=== PATIENT | male | born 1945 | race Caucasian/White ===

== ENCOUNTER 2023-08-17 09:40 | Observation (INO) ==
--- NOTE | 2023-08-08 08:52 | Communication Note ---
Date of Service: August 08, 2023 I was notified by surgeon's office that patient believed he was told by someone he may need a stress test or cardiac catheterization. I spoke with patient who states that he is unsure which office relayed this but stated that the individual told him they were not sure if he would need a stress test or cardiac catheterization. He states he regularly walks up one flight of stairs-denies chest discomfort or shortness of breath. He mentions he also does cardio work- outs at his gym. I spoke with Savanna at [facility] who states that there is no documentation in chart regarding patient needing additional work-up or that they spoke with patient. She states will have this put in documentation for our office to scan into chart. Patient made aware, he denied additional questions or concerns.
--- NOTE | 2023-08-15 14:28 | Anesthesiology Consultation ---
Date of Service August 15, 2023 Assessment & Plan (1) Encounter for pre-operative examination: - I was notified by surgeon's office that patient believed he was told by someone he may need a stress test or cardiac catheterization. I spoke with patient who states that he is unsure which office relayed this but stated that the individual told him they were not sure if he would need a stress test or cardiac catheterization. He states he regularly walks up one flight of stairs- denies chest discomfort or shortness of breath. He mentions he also does cardio work-outs at his gym. I spoke with Savanna at [facility] who states that there is no documentation in chart regarding patient needing additional work-up or that they spoke with patient. She states will have this put in documentation for our office to scan into chart. Patient made aware, he denied additional questions or concerns. Follow-up call with cardiology advised documentation on patient not needing cardiac catheterization is not completed as their office did not discuss anything with patient prior to surgery. Case discussed with Dr. Cooper who advised nothing additional is needed and patient can proceed with surgery. 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 Chart Review Chart Review: Acceptable Risk for Surgery and Patient NOT seen in Pre Admission Testing History Surgery Operation Date: 08/17/23 08:00 Proposed Procedures p TURP (Transurethral Resection of the Prostate) - Conor Shin, DO Height/Weight Height: 5 ft 8 in Weight: 73.482 kg Allergies Allergy/AdvReac Type Severity Reaction Status Date / Time ciprofloxacin [From Cipro] AdvReac Unknown Verified 08/04/23 09:08 Medications Home Medications Medication Instructions Recorded Confirmed Last Taken cephalexin 500 mg capsule 500 mg PO BID 10 days #10 caps 05/01/23 08/04/23 Unknown sulfamethoxazole 800 1 tab PO BID #6 tabs 05/01/23 08/04/23 Unknown mg-trimethoprim 160 mg tablet (Bactrim DS) doxycycline hyclate 100 mg capsule 100 mg PO BID 7 days #14 caps 05/04/23 08/04/23 Unknown aspirin 81 mg tablet,delayed 81 mg PO QAM 08/04/23 08/04/23 Unknown release atorvastatin 80 mg tablet 80 mg PO PM 08/04/23 08/04/23 Unknown cholecalciferol (vitamin D3) 50 50 mcg PO DAILY 08/04/23 08/04/23 Unknown mcg (2,000 unit) tablet (Vitamin D3) tamsulosin 0.4 mg capsule 0.4 mg PO BID 08/04/23 08/04/23 Unknown Past Medical History Medical History (Updated 08/15/23 @ 14:21 by Kay Pal PA-C) BPH (benign prostatic hyperplasia) History of COVID-2021 History of myocardial infarction 2016 > stent then CABG History of postoperative nausea and vomiting Hx of Lyme disease resolved Hx pulmonary embolism very remote hx per pt > unknown cause > thinner WI'ed Hyperlipidemia Prostate cancer just monitoring for now Past Surgical History Surgical History History of cataract surgery bilat History of cholecystectomy History of colonoscopy History of heart artery stent 2016 > 1 stent Hx of CABG x3 vessels in 2016 Hx of prostate biopsy Hx of vasectomy Social History Smoking Status: Never smoker Do You Dip or Chew Tobacco: No Hx Alcohol Use: Yes Alcohol type: beer alcohol intake frequency: a few times a month Hx Substance Use: No substance use type: does not use Testing Laboratory Results 08/14/23 WBC: 6.7 H/H: 14/43 PLATELETS: 208,000 SODIUM: 140 POTASSIUM: 4.4 CHLORIDE: 108 CO2: 28 BUN: 20 CREATININE: 0.8 GLUCOSE: 99 Electrocardiogram Date: 04/26/23 Sinus rhythm, rate 79 bpm Nonspecific T abnormality Rightward P/WRS axis and rotation-possible pulmonary disease Chest X-Ray Date: 08/08/23 Hyperexpanded lungs without evidence of acute cardiopulmonary disease. Echocardiogram Date: 02/28/20 EF 55% No LV regional wall motion abnormalities RVSP 30 mmHg No significant valvular pathology Other Testing Abdomen pelvis CT 05/06/23 No hydronephrosis or nephrolithiasis Small bilateral incidental parapelvic renal cysts Cholecystectomy Moderately enlarged prostate Posterior right hepatic lobe reveals a septated cyst 2.5 x 2.0 cm with benign morphology
[2023-08-17] MEDS: LR 15ML/HR IV SCH (10:05)
--- NOTE | 2023-08-17 10:28 | History & Physical Bridge Note ---
Date of Service August 17, 2023 History & Physical Bridge Note I have examined the patient, reviewed the History & Physical and in the interval since the performance of the History & Physical I have noted the following changes of clinical significance: no changes noted
[2023-08-17] MEDS ORDERED: ATROPINE SULFATE 0.1 MG/ML 10ML SYR IV PRN (11:04)
[2023-08-17] MEDS ORDERED: HYDROmorphone INJ 1 MG/ML SYRINGE IV PRN (11:04)
[2023-08-17] MEDS ORDERED: ePHEDrine sulfate 50 MG/ML AMP IV PRN (11:04)
[2023-08-17] MEDS ORDERED: ONDANSETRON INJ 2 MG/ML 2 ML VIAL IV PRN (11:04)
[2023-08-17] MEDS ORDERED: oxyCODONE/ACETAMINOPHEN 5mg/325mg TAB PO PRN (11:52)
[2023-08-17] MEDS ORDERED: MoRPHine SULFATE 2 MG/ML CARP IV PRN (11:52)
[2023-08-17] MEDS ORDERED: MIDAZOLAM HCL 1 MG/ML 2ML VIAL ONE (12:30)
[2023-08-17] MEDS ORDERED: fentaNYL citrate PF 100 MCG/2 ML VIAL ONE (12:30)
[2023-08-17] MEDS: DOXYCYCLINE HYCLATE 100 MG in DEXTROSE 5% MINI-B 100 ML IV STA (13:06)
[2023-08-17] MEDS: ceFAZolin 2000MG 2,000 MG/15 ML SYR IV SCH ×2 (13:12→20:46)
[2023-08-17] MEDS ORDERED: LIDOCAINE 2% 2 ML VIAL/AMP(20MG/ML) INFIL ONE (13:26)
[2023-08-17] MEDS ORDERED: PROPOFOL IV EMULSION 10 MG/ML 20 ML VIAL IV ONE (13:26)
[2023-08-17] MEDS ORDERED: DEXAMETHASONE SOD INJ 4 MG/ML VIAL ONE (13:37)
[2023-08-17] MEDS ORDERED: ONDANSETRON INJ 2 MG/ML 2 ML VIAL ONE (13:37)
--- NOTE | 2023-08-17 14:30 | Operative Report ---
[facility] Post Operative Report Pre & Post Diagnosis Operation Date: 08/17/23 11:25 Pre-Op Diagnosis: Prostate Cancer Post-Op Diagnosis: Prostate Cancer I identified the patient and participated in the time-out.: Yes Procedure Operation Date: 08/17/23 11:25 Actual Procedures p Transurethral Resection of the Prostate(Not Applicable) - Conor Shin DO Surgeon Conor Shin, II, DO Sales Team Member None Estimated Blood Loss 5 Findings Consistent with Post-Op Diagnosis Large Prostate with obstruction. Specimens Prostate adenoma. Drains [address] Anesthesia Type General Complications none Disposition Disposition: Recovery Room Indications Patient with obstruction due to prostate enlargement. Risks and benefits discussed at length. Description of Procedure Patient was consented and brought back to the operating room. Patient was placed under anesthesia in the supine position and moved to the dorsal lithotomy position. Patient was prepped and draped in the regular sterile fashion. A time out was completed. A 30degree Cystoscope was placed into the bladder and the entire bladder was examined. The UO's were identified as well as the bladder neck, trigone, dome, and the other important landmarks. The prostatic urethra and large lobes/adenoma was assessed and the veru and bladder neck identified and area/size was assessed. The resection scope was placed and the fine bipolar loop was selected. Starting at the 5 and 7 o'clock positions, a channel was created from bladder neck to the veru. At this point the resection was then taken along the lateral lobes. Starting in the anterior prostate, tissue was resected to the capsule fibers and resected back down to the channel. This was resected from the bladder neck to the Veru. Extensive resection was necessary in order to clear the excess prostate tissue especially the extremely large left lateral lobe. The Specimen was removed and sent for analysis. The resection bed and any bleeding areas were fulgurated/cauterized and the entire area inspected. All bleeding was controlled. The bladder was inspected a final time. The bladder was emptied and irrigated. All specimen and debris was removed. The scope was removed with the bladder partially full. A catheter was placed and balloon elevated. This was easily irrigated. The patient was cleaned, aroused from anesthesia, and transferred to the pacu in stable condition having tolerated the procedure well with no complications. I was present and participated in all aspects of the procedure. The patient will be monitored in the PACU until transferred. Will plan to monitor postop. Will maintain CBI overnight. Will have patient return to office in approximately a week for catheter removal. Will plan to follow-up in approximately a month with CRANE LADLE PERSON/PA for pathology I attest to the content of the Intraoperative Record and any orders documented therein. Any exceptions are noted below.
[2023-08-17 15:44] LABS: Basophils # (auto) 0.02 K/uL (0.00-0.20); Basophils % (auto) 0.3 %; Eosinophils # (auto) 0.11 K/uL (0.00-0.50); Eosinophils % (auto) 1.5 %; Hematocrit (blood only) 40.6 % (42.0-52.0); Hemoglobin 13.4 g/dl (14.0-18.0); Immature Granulocytes # (auto) 0.05 K/uL (0.01-0.20); Immature Granulocytes % (auto) 0.7 %; Lymphocytes # (auto) 0.89 K/uL (1.20-3.40); Lymphocytes % (auto) 12.2 %; Mean Corpuscular Hemoglobin 30.2 pg (25.0-34.0); Mean Corpuscular Volume 91.6 fL (80.0-100.0); Mean Platelet Volume 9.4 fL (9.4-12.4); Monocytes # (auto) 0.21 K/uL (0.11-0.59); Monocytes % (auto) 2.9 %; Neutrophils # (auto) 6.03 K/uL (1.40-6.50); Neutrophils % (auto) 82.4 %; Platelet Count 163 K/uL (130-400); RDW Coefficient of Variation 12.4 % (11.5-14.5); RDW Standard Deviation 41.3 fL (36.4-46.3); Red Blood Count 4.43 M/uL (4.70-6.10); White Blood Count 7.31 K/ul (4.8-10.8)
[2023-08-17 16:00] LABS: Albumin Globulin Ratio 1.8 (0.9-2); Albumin Level 3.5 gm/dl (3.4-5.0); BUN Creatinine Ratio 18.8 (10-20); Bilirubin,Total 0.7 mg/dl (0.2-1.0); Calcium 7.9 mg/dl (8.6-10.3); Creatinine Clr Calc Pharmacy 67.1 ml/min; Est GFR (African American) 95.4 ml/min; Est GFR (Non-African American) 82.3 ml/min; Potassium 4.4 mmol/L (3.5-5.1); Total Protein 5.5 gm/dl (6.0-8.3)
[2023-08-17] MEDS: SODIUM CHLORIDE 0.9% 1,000 ML IV SCH (16:29)
[2023-08-17] MEDS: oxyCODONE/ACETAMINOPHEN 5mg/325mg TAB PO PRN (19:29)
[2023-08-18 08:59] LABS: Hematocrit (blood only) 40.7 % (42.0-52.0); Hemoglobin 13.4 g/dl (14.0-18.0); Mean Corpuscular Hemoglobin 30.5 pg (25.0-34.0); Mean Corpuscular Hgb Conc 32.9 g/dL (32.0-36.0); Mean Corpuscular Volume 92.7 fL (80.0-100.0); Platelet Count 203 K/uL (130-400); RDW Coefficient of Variation 12.5 % (11.5-14.5); RDW Standard Deviation 42.8 fL (36.4-46.3); Red Blood Count 4.39 M/uL (4.70-6.10); White Blood Count 15.72 K/ul (4.8-10.8)
[2023-08-18 09:09] LABS: Albumin Globulin Ratio 1.5 (0.9-2); Albumin Level 3.3 gm/dl (3.4-5.0); BUN Creatinine Ratio 18.4 (10-20); Bilirubin,Total 0.5 mg/dl (0.2-1.0); Calcium 7.7 mg/dl (8.6-10.3); Creatinine Clr Calc Pharmacy 65.5 ml/min; Est GFR (African American) 94.5 ml/min; Est GFR (Non-African American) 81.5 ml/min; Globulin 2.2 gm/dl (2.5-4.0); Potassium 3.8 mmol/L (3.5-5.1); Total Protein 5.5 gm/dl (6.0-8.3)
--- NOTE | 2023-08-18 10:04 | Urology Progress Note ---
Date of Service August 18, 2023 Assessment & Plan (1) BPH w urinary obs/LUTS: (2) Prostate cancer: Plan - Pt POD#1 s/p TURP with Dr. Shin - Doing well, progressing as expected - Afebrile and hemodynamically stable - Labs reviewed-WBC 15.72, hemoglobin 13.4, creatinine 0.87 - Tolerating PO diet - 3 way Waldron catheter intact, patent and draining clear yellow urine with CBI on slow drip - CBI clamped @0800, nursing aware - will reassess later this AM - Maintain Waldron catheter - Encourage ambulation - OK to d/c IV fluids and encourage hydration - Will reassess later today - Anticipate home with Waldron catheter later today presuming urine appropriate and he continues to progress as expected - Pt reassessed this afternoon - Urine remains clear off CBI - Remains afebrile and hemodynamically stable - Ambulating without issue - Pt is stable for discharge home today with Waldron catheter in place - Will d/c with course of PO antibiotics - Discharge instructions reviewed, all questions were answered - Appropriate postoperative follow-up appointments in place. Admission and Anticipated Discharge Date Admission Date: August 17, 2023 Subjective Patient seen at bedside this AM Awake, resting in bed on arrival No acute distress Overall feeling well Waldron draining clear urine with CBI on slow drip Denies fever, chills, nausea, vomiting No reported pain at present Review of Systems Constitutional: as per Subjective / HPI Gastrointestinal: as per Subjective / HPI Genitourinary: + as per Subjective / HPI Physical Exam Constitutional: no acute distress Respiratory: no respiratory distress and no labored breathing Musculoskeletal: Head/Neck/Chest: normocephalic Skin: No visible rashes or lesions to exposed skin areas Neurologic: moves all extremities and awake Psychiatric: A+Ox3, euthymic affect Genitourinary: Waldron intact, draining clear yellow urine with CBI on slow drip Results & Data Vital Signs (Past 12 Hours) Vital Signs Temp Pulse Resp BP BP Pulse Ox O2 Del Method 08/18/23 08:09 Room Air 08/18/23 07:43 36.6 C 70 18 104/63 97 Room Air 08/18/23 03:54 36.5 C 67 18 98/43 L 97 Room Air 08/17/23 23:05 36.8 C 71 18 103/55 L 97 Room Air PG Care Time/CCT Total # of Minutes Spent Total Time Spent with Patient: Total time spent is greater than 50% in coordination of care (as documented) at patient's floor/unit and/or counseling patient: Coding Level of Care Code None Diagnoses BPH w urinary obs/LUTS N40.1; N13.8 Prostate cancer C61
--- NOTE | 2023-08-18 10:35 | Anesthesiology Progress Note ---
Date of Service August 17, 2023 Anesthesia Post Procedure Vital Signs Vital Signs: Temp Pulse Resp BP BP Pulse Ox O2 Del Method 08/18/23 08:09 Room Air 08/18/23 07:43 36.6 C 70 18 104/63 97 Room Air 08/18/23 03:54 36.5 C 67 18 98/43 L 97 Room Air 08/17/23 23:05 36.8 C 71 18 103/55 L 97 Room Air 08/17/23 19:45 36.5 C 76 18 106/51 L 94 Room Air 08/17/23 19:25 Room Air 08/17/23 18:41 36.4 C L 78 16 116/61 96 Room Air 08/17/23 17:47 36.6 C 75 16 131/65 98 Room Air 08/17/23 16:54 36.4 C L 66 16 118/62 95 Room Air 08/17/23 16:22 36.4 C L 60 16 144/69 H 97 Room Air 08/17/23 16:00 Room Air 08/17/23 15:50 36.3 C L 56 L 16 135/72 Room Air 08/17/23 15:35 36.4 C L 56 L 12 134/69 97 Room Air 08/17/23 15:20 59 L 12 132/67 98 Room Air 08/17/23 15:05 36.4 C L 63 15 134/70 99 Room Air 08/17/23 14:55 74 16 122/70 99 Oxymask 08/17/23 14:45 71 18 134/72 99 Oxymask 08/17/23 14:35 36.1 C L 74 14 138/80 98 Oxymask O2 Flow Rate 08/18/23 08:09 08/18/23 07:43 08/18/23 03:54 08/17/23 23:05 08/17/23 19:45 08/17/23 19:25 08/17/23 18:41 08/17/23 17:47 08/17/23 16:54 08/17/23 16:22 08/17/23 16:00 08/17/23 15:50 08/17/23 15:35 08/17/23 15:20 08/17/23 15:05 08/17/23 14:55 2 08/17/23 14:45 4 08/17/23 14:35 6 Transfer of Care Handoff Completed per policy Notes Mental Status: alert / awake / arousable and participated in evaluation Nausea / Vomiting: adequately controlled Pain: adequately controlled Airway Patency, RR, SpO2: stable & adequate BP & HR: stable & adequate Hydration State: stable & adequate Anesthetic Complications: no major complications apparent and Pt Satisfied with anesthetic care
--- NOTE | 2023-08-18 12:49 | Discharge Summary ---
Date of Service August 18, 2023 Admission HPI Per Admitting Provider 78-year-old male with a history of prostate cancer and BPH admitted for transurethral resection of the prostate Admission Exam Per Admitting Provider General: Alert in no acute distress. HEENT: Normocephalic Atraumatic. Inspection normal. Psychologic: Normal affect. Respiratory: Nonlabored. Cardiovascular: No tachycardia Skin: Mcgaffey and Dry. Principal Diagnosis BPH, Prostate Cancer Discharge Exam Constitutional no acute distress Respiratory no respiratory distress and no labored breathing Musculoskeletal Head/Neck/Chest: normocephalic Neurologic moves all extremities and awake Psychiatric A+Ox3, euthymic affect Genitourinary Waldron catheter intact draining clear yellow urine Discharge Data Allergies Allergy/AdvReac Type Severity Reaction Status Date / Time ciprofloxacin [From Cipro] AdvReac Intermediate Verified 08/17/23 10:12 Procedures Performed Operation Date: 08/17/23 11:25 Actual Procedures p Transurethral Resection of the Prostate(Not Applicable) - Conor Shin, DO Hospital Course (1) BPH w urinary obs/LUTS: (2) Prostate cancer: Plan - Pt POD#1 s/p TURP with Dr. Shin - Doing well, progressing as expected - Afebrile and hemodynamically stable - Labs reviewed-WBC 15.72, hemoglobin 13.4, creatinine 0.87 - Tolerating PO diet - 3 way Waldron catheter intact, patent and draining clear yellow urine with CBI on slow drip - CBI clamped @0800, nursing aware - will reassess later this AM - Maintain Waldron catheter - Encourage ambulation - OK to d/c IV fluids and encourage hydration - Will reassess later today - Anticipate home with Waldron catheter later today presuming urine appropriate and he continues to progress as expected - Pt reassessed this afternoon - Urine remains clear off CBI - Remains afebrile and hemodynamically stable - Ambulating without issue - Pt is stable for discharge home today with Waldron catheter in place - Will d/c with course of PO antibiotics - Discharge instructions reviewed, all questions were answered - Appropriate postoperative follow-up appointments in place. Total Time Total Time Spent Total Time Spent (In Minutes): 15 Discharge Plan Discharge Items Patient Disposition: Home - Self-Care Reason For Visit: Irregular Prostate, Benign Prostatic Hyperplasia w Discharge Diagnosis: BPH, Irregular Prostate Activity: Per Instructions section Bathing Comment: OK to shower. No tub baths or soaks. Non-emergency contact: Surgeon and Urologist Call non-emergency contact if: you have any medication questions, your pain is not controlled, your pain is worsening and you have a fever Follow-up/Referrals: Charline Rice CRNP [Nurse Practitioner] - 09/19/23 2:00 pm Samuel Polanco MD [Primary Care Provider] - [facility],Nurse [FAKE FOR SCHEDULES] - 08/31/23 9:50 am Diet: Regular Addtl Attending Provider Instructions: Please take all medications as prescribed and keep all follow-ups as scheduled. Please call our office at [phone] with any questions, concerns or need to reschedule appointments for any reason. We are happy to assist you. Tips for your recovery at home: Dont be alarmed by brownish or reddish blood or clots in your urine. This is a result of the procedure. This may occur off and on for weeks to months after the procedure but should continue to improve. Drink plenty of fluids during the day (enough to keep your urine very light colored). This will help keep a healthy flow of urine. Do not lift >25 lbs until your followup Avoid constipation. Please use a stool softener (Colace) for the first two weeks after your procedure Be sure to finish the antibiotics as prescribed. If you go home with a catheter, please wash tubing where it enters your body twice daily with mild soap (Dove or Dial). Once your catheter is removed, expect some blood in your urine and some burning when you urinate. You should have an appointment to have this removed, if you do not please call our office to arrange. When to call [facility] at [phone]: Your urine contains heavy blood clots or your catheter stops draining You are constantly leaking urine Fever of 101F or higher, chills, nausea, or vomiting Your pain is not relieved with medication Pending Studies at Discharge: Yes (pathology) Stand-Alone Forms: My [employer] Smoking Cessation Medications and DC Order Prescriptions: New sulfamethoxazole-trimethoprim [Bactrim DS] 800-160 mg tablet 1 tab PO Q12H 5 Days Qty: 10 0RF lidocaine HCl 2 % jelly in applicator 1 applic topical BID PRN (Reason: pain) Qty: 5 0RF Rx Instructions: Apply topically to catheter insertion site as needed for pain Continued atorvastatin 80 mg Tablet 80 mg PO PM aspirin 81 mg Tablet,Delayed Release (Dr/Ec) 81 mg PO QAM tamsulosin 0.4 mg Capsule 0.4 mg PO BID cholecalciferol (vitamin D3) [Vitamin D3] 50 mcg (2,000 unit) Tablet 50 mcg PO DAILY Discharge Orders: Discharge Order (Routine); Ordered 08/18/23 Ordered By: Charline Rice Admission Data Admit Date/Time: 08/17/23 11:52 Attending Provider: Conor Shin Admit Provider: Conor Shin Primary Care Provider: Samuel Polanco Other Interventions: Discharge Summary Assessment (RN) Last Done: 08/18/23 12:25 Coding Level of Care Code 72992 IN/OBS DISCH 30 MIN/LESS Diagnoses BPH w urinary obs/LUTS N40.1; N13.8 Prostate cancer C61
== END 2023-08-18 12:46 | disposition home or self-care (01) ==
LOC: ASU 09:40 → 3W 09:40

== ENCOUNTER 2023-08-20 20:17 | Observation (INO) ==
[2023-08-20 21:23] LABS: Albumin Globulin Ratio 1.4 (0.9-2); Albumin Level 3.6 gm/dl (3.4-5.0); BUN Creatinine Ratio 15.9 (10-20); Bilirubin,Total 1.5 mg/dl (0.2-1.0); Calcium 8.5 mg/dl (8.6-10.3); Creatinine Clr Calc Pharmacy 55.1 ml/min; Est GFR (African American) 75.6 ml/min; Est GFR (Non-African American) 65.2 ml/min; Globulin 2.6 gm/dl (2.5-4.0); Potassium 3.9 mmol/L (3.5-5.1); Total Protein 6.2 gm/dl (6.0-8.3)
[2023-08-20 21:25] LABS: INR 1.1 (0.9-1.1); Prothrombin Time 11.9 Seconds (9.0-12.0)
[2023-08-20 21:27] LABS: Troponin I High Sensitivity 60.8 pg/ml (0-20)
[2023-08-20 21:31] LABS: Basophils # (auto) 0.02 K/uL (0.00-0.20); Basophils % (auto) 0.1 %; Eosinophils # (auto) 0.11 K/uL (0.00-0.50); Eosinophils % (auto) 0.8 %; Hematocrit (blood only) 40.7 % (42.0-52.0); Hemoglobin 13.3 g/dl (14.0-18.0); Immature Granulocytes # (auto) 0.09 K/uL (0.01-0.20); Immature Granulocytes % (auto) 0.7 %; Lymphocytes % (auto) 5.8 %; Mean Corpuscular Hemoglobin 30.6 pg (25.0-34.0); Mean Corpuscular Hgb Conc 32.7 g/dL (32.0-36.0); Mean Corpuscular Volume 93.8 fL (80.0-100.0); Monocytes # (auto) 1.06 K/uL (0.11-0.59); Monocytes % (auto) 7.7 %; Neutrophils # (auto) 11.61 K/uL (1.40-6.50); Neutrophils % (auto) 84.9 %; Platelet Count 158 K/uL (130-400); RDW Coefficient of Variation 13.1 % (11.5-14.5); RDW Standard Deviation 45.1 fL (36.4-46.3); Red Blood Count 4.34 M/uL (4.70-6.10); White Blood Count 13.69 K/ul (4.8-10.8)
--- NOTE | 2023-08-20 21:32 | Emergency Department Note ---
Impression & Plan Sepsis, Acute UTI, H/O transurethral resection of prostate, Elevated troponin ED Provider Note Provider: Kris Doyle MD DATE OF SERVICE: 08/20/2023 CHIEF COMPLAINT: Fevers, chills, possible urinary sepsis HISTORY OF PRESENT ILLNESS: Patient is a 78-year-old gentleman past medical history of BPH and prostate cancer status post TURP procedure here with Dr. Shin on the . Went home on Monday. Since being home patient has maintained his Waldron but developed fever. Evidently did go home with some Bactrim tablets. Has been feeling somewhat more weak. Maybe a little bit of right lower flank pain. Some nausea at times. Went to the local ER at [facility]. Had workup there and given 2 L IV fluid and cefepime. Concern for urosepsis. They discussion with urology. As the patient a procedure here private vehicle he came here for further care. Reviewed information from outpatient facility. Patient was mildly high white blood cell count of 13.2. Normal creatinine of 1. Procalcitonin 0.15. Had CT scan without significant acute findings completed outside facility as well as a chest x-ray. Urinalysis from outside facility not that convincing of UTI but does have indwelling Waldron and recent procedure. PAST MEDICAL HISTORY: As noted above and includes prior MEDICATIONS: Reviewed home medications, aspirin has been held given his procedure SOCIAL HISTORY: PHYSICAL EXAM: GENERAL: alert and oriented in no acute distress on stretcher Head: normocephalic and atraumatic EYES: No injection, discharge or icterus. EOMI. NECK: Trachea midline. ENT: Mucous membranes pink and moist. LUNGS: Airway patent. No retractions. Breath sounds clear with good air entry bilaterally. HEART: Irregular rate and rhythm. No chest wall tenderness ABDOMEN: Soft and non-tender, without guarding or rebound. Indwelling Waldron catheter in place with yellowish-red output. SKIN: Acyanotic, warm, dry, without rashes EXTREMITIES: Without swelling, tenderness or deformity NEUROLOGICAL: No focal deficits. No aphasia. No facial droop or slurred speech.Ambulatory. EK bpm atrial fibrillation versus sinus rhythm with PACs. No acute ST segment elevation with nonspecific T wave changes and inversions. QTc 412. CONTINUOUS CARDIAC MONITORING: was ordered and showed a heart rate of 70s bpm in sinus rhythm with PACs (less likely A-fib) Patient's laboratory studies and imaging reviewed. Differential includes Infection, dehydration, metabolic abnormality, hypo/hyperglycemia, electrolyte disturbance, anemia, hypoxia, cardiac sources, intracerebral event, toxicologic, neurologic, as well as other pathologies. IMPRESSION/MEDICAL DECISION MAKING: Patient well-appearing in no distress. Blood pressure slightly low. Not tachycardic. Not febrile here. Reviewed outpatient information available. Does have mild leukocytosis but urinalysis not clearly infected there. Has been on Bactrim the outpatient setting. Given cefepime and 2 L IV fluid prior to arrival. Will give additional 500 cc bolus here but avoid any additional fluid at this point as this was more than his calculated 30 ml/kg sepsis volume.. Blood work and cultures and lactate sent here. Lactate not elevated here. Bit of nausea now but benign abdomen. Had outside CT imaging do not feel need to repeat at this time. Troponin mildly elevated and do not see this completed previously here or at outside facility. Will need to be monitored. Does have cardiac history but no chest pain. EKG without significant findings. Will bring in for further monitoring given the elevated troponin concern for possible sepsis of urinary origin. Will not do additional IV fluids urgency 2 L prior to arrival at the outside facility. EKG here appears to be irregular and possible A-fib versus sinus with frequent PACs. No history of A-fib reported. Does not appear to be in A-fib RVR and on further monitoring of telemetry appears to be more of a sinus rhythm with PACs. Will need to be monitored further while in the hospital. Do not feel requires urgent anticoagulation at this time especially light of his recent procedure. Hospitalist team was contacted for further care here. DIAGNOSIS: Weakness, arrhythmia, status post TURP procedure with acute UTI DISPOSITION: Hospitalist will evaluate Patient was agreeable with this plan. Past Med/Surg History Problem List (Updated 08/21/23 @ 01:20 by Kris Doyle M.D.) Elevated troponin (Acute) H/O transurethral resection of prostate (Acute) Acute UTI (Acute) Elevated troponin Atrial fibrillation Sepsis (Acute) Encounter for pre-operative examination Irregular prostate BPH w urinary obs/LUTS Prostate cancer Medical History History of COVID-2021 History of postoperative nausea and vomiting Hx of Lyme disease resolved Hx pulmonary embolism very remote hx per pt > unknown cause > thinner DC'ed History of myocardial infarction 2016 > stent then CABG Hyperlipidemia Prostate cancer just monitoring for now BPH (benign prostatic hyperplasia) Surgical History Hx of vasectomy History of colonoscopy History of cholecystectomy History of cataract surgery bilat History of heart artery stent 2016 > 1 stent Hx of CABG x3 vessels in 2016 Hx of prostate biopsy Social History Smoking Status: Never smoker Second Hand Exposure: No; Do You Dip or Chew Tobacco: No; Hx Alcohol Use: Yes Alcohol type: beer Hx Substance Use: No Preferred Language: [place]ese Communication Ability: Effective Visual Impairment: No Limitations Labor Crew Supervisor Required: No Beliefs That Will Affect Care: None Current Living Situation: Alone Other Information That Helps Us Care for You: No Feels Safe at Home: Yes Safety Concerns: Feels Safe At This Time Assistive Devices: Glasses Allergies Allergies Allergy/AdvReac Type Severity Reaction Status Date / Time ciprofloxacin [From Cipro] AdvReac Intermediate Verified 08/17/23 10:12 Home Meds Home Medications Medication Instructions Recorded Confirmed aspirin 81 mg tablet,delayed 81 mg PO QAM 08/04/23 08/20/23 release atorvastatin 80 mg tablet 80 mg PO PM 08/04/23 08/20/23 cholecalciferol (vitamin D3) 50 50 mcg PO DAILY 08/04/23 08/20/23 mcg (2,000 unit) tablet (Vitamin D3) tamsulosin 0.4 mg capsule 0.4 mg PO BID 08/04/23 08/20/23 acetaminophen 500 mg tablet 1,000 mg PO Q6H PRN Pain 08/20/23 08/20/23 (Tylenol Extra Strength) Previous Rx's Medication Instructions Recorded lidocaine HCl 2 % mucosal jelly in 1 applic topical BID PRN pain #5 mL 08/18/23 applicator sulfamethoxazole 800 1 tab PO Q12H 5 days #10 tabs 08/18/23 mg-trimethoprim 160 mg tablet (Bactrim DS) Results & Data (ED) Vital Signs Vital Signs - 24 hr 08/20/23 20:22 08/20/23 20:40 08/20/23 20:45 Temperature 36.5 C Temperature Source Temporal Artery Scan Pulse Rate 87 75 Pulse Rate from SpO2 Sensor Respiratory Rate 18 Respiratory Effort / Characteristics Non-Labored Spontaneous Respiratory Depth Normal Blood Pressure 97/55 L 93/64 L Blood Pressure Mean 69 75 Pulse Oximetry 98 Oxygen Delivery Method Room Air Sepsis Recent Fever Within 48 Hours Yes Sepsis New/Unexplained Change in Mental Status No Sepsis Action Taken by Nursing No Action Required 08/20/23 20:48 08/20/23 21:15 08/20/23 21:21 Temperature Temperature Source Pulse Rate 87 69 Pulse Rate from SpO2 Sensor 81 74 Respiratory Rate 24 17 Respiratory Effort / Characteristics Respiratory Depth Blood Pressure 98/64 L Blood Pressure Mean 77 Pulse Oximetry 96 97 Oxygen Delivery Method Room Air Room Air Sepsis Recent Fever Within 48 Hours Sepsis New/Unexplained Change in Mental Status Sepsis Action Taken by Nursing 08/20/23 21:30 08/20/23 21:45 08/20/23 22:00 Temperature Temperature Source Pulse Rate 92 H 77 95 H Pulse Rate from SpO2 Sensor 74 93 H Respiratory Rate 18 15 20 Respiratory Effort / Characteristics Respiratory Depth Blood Pressure 98/55 L 93/57 L 101/57 L Blood Pressure Mean 69 69 71 Pulse Oximetry 97 96 Oxygen Delivery Method Room Air Room Air Sepsis Recent Fever Within 48 Hours Sepsis New/Unexplained Change in Mental Status Sepsis Action Taken by Nursing 08/20/23 22:30 Temperature Temperature Source Pulse Rate Pulse Rate from SpO2 Sensor Respiratory Rate Respiratory Effort / Characteristics Respiratory Depth Blood Pressure 104/59 L Blood Pressure Mean 76 Pulse Oximetry Oxygen Delivery Method Sepsis Recent Fever Within 48 Hours Sepsis New/Unexplained Change in Mental Status Sepsis Action Taken by Nursing Laboratory Data 08/20/23 20:40 08/20/23 20:40 Lab Results 08/20/23 08/20/23 08/20/23 Range/Units 20:40 21:00 21:55 WBC 13.69 H (4.8-10.8) K/ul RBC 4.34 L (4.70-6.10) M/uL Hgb 13.3 L (14.0-18.0) g/dl Hct 40.7 L (42.0-52.0) % MCV 93.8 (80.0-100.0) fL MCH 30.6 (25.0-34.0) pg MCHC 32.7 (32.0-36.0) g/dL RDW Std Deviation 45.1 (36.4-46.3) fL RDW Coeff of Muriel 13.1 (11.5-14.5) % Plt Count 158 (130-400) K/uL MPV 10.0 (9.4-12.4) fL Immature Gran % (Auto) 0.7 % Neut % (Auto) 84.9 % Lymph % (Auto) 5.8 % [place] % (Auto) 7.7 % Eos % (Auto) 0.8 % Baso % (Auto) 0.1 % Neut # (Auto) 11.61 H (1.40-6.50) K/uL Lymph # (Auto) 0.80 L (1.20-3.40) K/uL [place] # (Auto) 1.06 H (0.11-0.59) K/uL Eos # (Auto) 0.11 (0.00-0.50) K/uL Baso # (Auto) 0.02 (0.00-0.20) K/uL Immature Gran # (Auto) 0.09 (0.01-0.20) K/uL PT 11.9 (9.0-12.0) Seconds INR 1.1 (0.9-1.1) Sodium 137 (136-145) mmol/L Potassium 3.9 (3.5-5.1) mmol/L Chloride 106 (98-107) mmol/L Carbon Dioxide 23 (21-32) mmol/L Anion Gap 8 (3-11) BUN 17 (6-23) mg/dl Creatinine 1.07 (0.6-1.4) mg/dl Est Cr Clr Drug Dosing 55.1 ml/min Est GFR ( Amer) 75.6 ml/min Est GFR (Non-Af Amer) 65.2 ml/min BUN/Creatinine Ratio 15.9 (10-20) Glucose 108 H (70-99(Fasting)) mg/dl Lactate 1.7 (0.4-2.0) mmol/L Calcium 8.5 L (8.6-10.3) mg/dl Total Bilirubin 1.5 H (0.2-1.0) mg/dl AST 45 H (13-39) U/L ALT 46 (7-52) U/L Alkaline Phosphatase 83 (34-104) U/L Troponin I High Sens 60.8 H* (0-20) pg/ml Total Protein 6.2 (6.0-8.3) gm/dl Albumin 3.6 (3.4-5.0) gm/dl Globulin 2.6 (2.5-4.0) gm/dl Albumin/Globulin Ratio 1.4 (0.9-2) Procalcitonin 0.16 (0-0.5) ng/ml Urine Color [place] Urine Appearance Clear (Clear) Urine pH 6.0 (4.5-7.5) Ur Specific [place] > 1.045 H (1.000-1.030) Urine Protein 1+ H (Negative) Urine Glucose (UA) Negative (Negative) Urine Ketones 2+ H (Negative) Urine Blood 2+ H (Negative) Urine Nitrite Negative (Negative) Urine Bilirubin Negative (Negative) Urine Urobilinogen Negative (Negative) Ur Leukocyte Esterase 1+ H (Negative) Urine WBC (Auto) 21-50 H (0-5) /hpf Urine RBC (Auto) >20 H (0-2) /hpf U Hyaline Cast (Auto) 3-5 H (0-2) /lpf U Epithel Cells (Auto) 0-2 (0-2) /hpf Urine Bacteria (Auto) None Seen (None Seen) SARS-CoV-2 (PCR) NEGATIVE (Negative) Influenza Type A (PCR) Negative (Neg) Influenza Type B (PCR) Negative (Neg) RSV (RT-PCR) Negative (Neg) Administered Medications Lactated Ringer's (Lr) 1,000 mls @ 100 mls/hr IV .Q10H SKYLA Stop: 08/21/23 19:47 Last Admin: 08/21/23 00:17 Dose: 100 mls/hr Documented By: ALTON Discontinued Medications Sodium Chloride (Nss) 500 mls @ 999 mls/hr IV .Q31M ONE Stop: 08/20/23 21:50 Last Infusion: 08/20/23 23:11 Dose: Infused Documented By: Admin: 08/20/23 21:50 Dose: 999 mls/hr Documented By: NESS Cefepime HCl (Maxipime) 2,000 mg in 20 mls @ 5 mls/min IV NOW STA; Protocol Stop: 08/20/23 22:28 Last Admin: 08/20/23 22:47 Dose: 5 mls/min Documented By: NESS Ondansetron HCl (Ondansetron Inj 2 Mg/Ml 2 Ml Vial) 4 mg IV NOW STA Stop: 08/20/23 21:23 Last Admin: 08/20/23 21:50 Dose: 4 mg Documented By: KMO Discharge Plan Visit Data Chief Complaint: Referred by Doctor Stated Complaint: FEVER S/P UROLOGY PROCEDURE ED Provider: Kris Doyle Discharge Problem: Sepsis, Acute UTI, H/O transurethral resection of prostate, Elevated troponin Patient Disposition: Admitted As Inpatient Discharge Instructions Interventions: ED Discharge Assessment Last Done: 08/20/23 23:29
[2023-08-20] MEDS: ONDANSETRON INJ 2 MG/ML 2 ML VIAL IV STA (21:50)
[2023-08-20] MEDS: SODIUM CHLORIDE 0.9% 500 ML IV ONE (21:50)
[2023-08-20 22:02] LABS: Influenza A virus by PCR Negative (Neg); Influenza B virus by PCR Negative (Neg); RSV by PCR Negative (Neg); SARS CoV2 RNA(COVID-19) Ceph NEGATIVE (Negative)
[2023-08-20 22:07] LABS: Appearance Urine Clear (Clear); Bacteria Urine Automated None Seen (None Seen); Bilirubin Urine Negative (Negative); Blood Urine 2+ (Negative); Color Urine Orange; Epithelial Cell Urine Auto 0-2 /hpf (0-2); Glucose Urine UA Negative (Negative); Ketones Urine 2+ (Negative); Leukocyte Esterase Urine 1+ (Negative); Nitrite Urine Negative (Negative); Protein Urine 1+ (Negative); RBC Urine Automated >20 /hpf (0-2); Specific Gravity Urine > 1.045 (1.000-1.030); Urobilinogen Urine Negative (Negative); WBC Urine Automated 21-50 /hpf (0-5)
--- NOTE | 2023-08-20 22:32 | History & Physical Report ---
Date of Service August 20, 2023 Assessment & Plan (1) Sepsis: Plan: Patient with sepsis present on admission. Febrile, borderline low BP, leukocytosis with WBC=13.69. Likely urinary source given recent urological procedure. Patient was seen at an outside facility prior to arrival and was administered IVF x 3L and Cefepime Cultures and tick panel sent ([facility] in [place]) Presently afebrile, BP has remained stable. Lactate WNL -Observation to PCU -Follow cultures sent from ER (note, obtained AFTER antibiotics from outside facility. [facility] should consider calling to check on cultures and tick panel from [facility]) -Continue IVF - LR at 100mL/hr x 2L -Continue Cefepime 2gm IV q 8 hours -Maintain Waldron catheter - bladder scan as needed -Urology consultation appreciated (2) Atrial fibrillation: Plan: EKG with atrial fibrillation. No prior mention of this. Rate controlled -Check electrolytes, TSH -Check 2D echo -Will hold off on anticoagulation at this time given recent Urological procedure, UA with blood/RBCs (3) Elevated troponin: Plan: Patient with history of CAD s/p CABG x 3V in 2016. He denies chest pain. EKG with no ischemic changes. He does have mild elevation in troponin - presently 60.8 --> 77. Possibly in setting of acute infection, sepsis. -Telemetry monitoring -Trend troponin -2D echo as above -Continue ASA 81mg po qAM -Continue Atorvastatin 80mg po qPM Plan F/E/N - LR at 100mL/hr x 2L, monitor electrolytes and replete as needed, AHA diet as tolerated Ppx - Lovenox Code - Full Dispo - Observation to PCU History of Present Illness Chief Complaint: fever, chills Primary Care Provider: Miguel A Zavala Dmitriy Coronel is a pleasant 78yo male with history of CAD s/p CABG x 3V in 2016 s/p TURP performed by Dr. Shin on 08/17/23. Patient reports the procedure went well with no complications. He stayed overnight in the hospital and was discharged home on 08/18/[address] with a [address]ron in place and Bactrim. When patient returned home he developed a fever as well as chills and fatigue. He has been taking Tylenol with some improvement. This AM he woke with a fever to 101.4 so he went to the ER at [facility] in [place]. At the outside facility patient was febrile at 100.2, borderline BP at 94/62. He had cultures taken as well as Tick labs sent. He was given LR x 2L then LR at 200mL/hr x 1 additional liter. He was given Tylenol and Cefepime. Patient was subsequently transferred to [facility] for Urology evaluation. In the ER he is afebrile, borderline BP at 98/64 ER Course: Cefepime 2gm [place] 4mg IV NSS x 500mL Allergies Allergy/AdvReac Type Severity Reaction Status Date / Time ciprofloxacin [From Cipro] AdvReac Intermediate Verified 08/17/23 10:12 Home Medications Medication Instructions Recorded Confirmed Type aspirin 81 mg tablet,delayed 81 mg PO QAM 08/04/23 08/20/23 History release atorvastatin 80 mg tablet 80 mg PO PM 08/04/23 08/20/23 History cholecalciferol (vitamin D3) 50 50 mcg PO DAILY 08/04/23 08/20/23 History mcg (2,000 unit) tablet (Vitamin D3) tamsulosin 0.4 mg capsule 0.4 mg PO BID 08/04/23 08/20/23 History lidocaine HCl 2 % mucosal jelly in 1 applic topical BID PRN pain #5 mL 08/18/23 08/20/23 Rx applicator sulfamethoxazole 800 1 tab PO Q12H 5 days #10 tabs 08/18/23 08/20/23 Rx mg-trimethoprim 160 mg tablet (Bactrim DS) acetaminophen 500 mg tablet 1,000 mg PO Q6H PRN Pain 08/20/23 08/20/23 History (Tylenol Extra Strength) Past Med/Surg History Problem List (Updated 08/21/23 @ 00:26 by Nilda Coe DO) Elevated troponin Atrial fibrillation Sepsis Encounter for pre-operative examination Irregular prostate BPH w urinary obs/LUTS Prostate cancer Medical History History of COVID-19 2021 History of postoperative nausea and vomiting Hx of Lyme disease resolved Hx pulmonary embolism very remote hx per pt > unknown cause > thinner DC'ed History of myocardial infarction 2016 > stent then CABG Hyperlipidemia Prostate cancer just monitoring for now BPH (benign prostatic hyperplasia) Surgical History Hx of vasectomy History of colonoscopy History of cholecystectomy History of cataract surgery bilat History of heart artery stent 2016 > 1 stent Hx of CABG x3 vessels in 2016 Hx of prostate biopsy Social History Smoking Status: Never smoker Second Hand Exposure: No; Do You Dip or Chew Tobacco: No; Hx Alcohol Use: Yes Alcohol type: beer Hx Substance Use: No Preferred Language: Uzbek Communication Ability: Effective Visual Impairment: No Limitations Rush Seater Required: No Beliefs That Will Affect Care: None Current Living Situation: Alone Other Information That Helps Us Care for You: No Feels Safe at Home: Yes Safety Concerns: Feels Safe At This Time Assistive Devices: Glasses Review of Systems Review of Systems: All systems reviewed & are unremarkable except as noted in HPI & below Physical Exam Physical Exam: General: patient resting comfortably, NAD, non-toxic in appearance, AA&O x 4 Skin: warm, dry, intact, no rashes or lesions HEENT: NC/AT, PERRL, EOMI, anicteric sclera, conjunctiva without injection, external ear normal to inspection and nontender, nares patent, moist mucus membranes, dentition intact, no oropharyngeal lesions, neck supple, trachea midline, no LAD, no thyromegaly, no JVD Heart: +S1/S2, irregularly irregular, no m/r/g Lungs: equal air entry bilaterally, no rales/rhonchi/wheezes Abd: +BS, soft, NT/ND, no masses/organomegaly/ascites Ext: warm, 2+ pulses in UE/LE bilaterally, no clubbing/cyanosis or edema Waldron in place with dark, yellow urine in bag Neuro: nonfocal, patient AA&O x 4, speech intact, no facial droop, moving all extremities on command with equal strength 5/5 Results & Data Results & Data Vital Signs (Past 12 Hours) Vital Signs Temp Pulse Resp BP Pulse Ox O2 Del Method 08/20/23 21:21 69 17 97 Room Air 08/20/23 21:15 98/64 L 08/20/23 20:48 87 24 96 Room Air 08/20/23 20:45 93/64 L 08/20/23 20:40 75 08/20/23 20:22 36.5 C 87 18 97/55 L 98 Room Air Laboratory Results Laboratory Results WBC 13.69 K/ul (4.8-10.8) H 08/20/23 20:40 RBC 4.34 M/uL (4.70-6.10) L 08/20/23 20:40 Hgb 13.3 g/dl (14.0-18.0) L 08/20/23 20:40 Hct 40.7 % (42.0-52.0) L 08/20/23 20:40 MCV 93.8 fL (80.0-100.0) 08/20/23 20:40 MCH 30.6 pg (25.0-34.0) 08/20/23 20:40 MCHC 32.7 g/dL (32.0-36.0) 08/20/23 20:40 RDW Std Deviation 45.1 fL (36.4-46.3) 08/20/23 20:40 RDW Coeff of Muriel 13.1 % (11.5-14.5) 08/20/23 20:40 Plt Count 158 K/uL (130-400) 08/20/23 20:40 MPV 10.0 fL (9.4-12.4) 08/20/23 20:40 Immature Gran % (Auto) 0.7 % 08/20/23 20:40 Neut % (Auto) 84.9 % 08/20/23 20:40 Lymph % (Auto) 5.8 % 08/20/23 20:40 [facility] % (Auto) 7.7 % 08/20/23 20:40 Eos % (Auto) 0.8 % 08/20/23 20:40 Baso % (Auto) 0.1 % 08/20/23 20:40 Neut # (Auto) 11.61 K/uL (1.40-6.50) H 08/20/23 20:40 Lymph # (Auto) 0.80 K/uL (1.20-3.40) L 08/20/23 20:40 [facility] # (Auto) 1.06 K/uL (0.11-0.59) H 08/20/23 20:40 Eos # (Auto) 0.11 K/uL (0.00-0.50) 08/20/23 20:40 Baso # (Auto) 0.02 K/uL (0.00-0.20) 08/20/23 20:40 Immature Gran # (Auto) 0.09 K/uL (0.01-0.20) 08/20/23 20:40 PT 11.9 Seconds (9.0-12.0) 08/20/23 20:40 INR 1.1 (0.9-1.1) 08/20/23 20:40 Sodium 137 mmol/L (136-145) 08/20/23 20:40 Potassium 3.9 mmol/L (3.5-5.1) 08/20/23 20:40 Chloride 106 mmol/L (98-107) 08/20/23 20:40 Carbon Dioxide 23 mmol/L (21-32) 08/20/23 20:40 Anion Gap 8 (3-11) 08/20/23 20:40 BUN 17 mg/dl (6-23) 08/20/23 20:40 Creatinine 1.07 mg/dl (0.6-1.4) 08/20/23 20:40 Est Cr Clr Drug Dosing 55.1 ml/min 08/20/23 20:40 Est GFR ( Amer) 75.6 ml/min 08/20/23 20:40 Est GFR (Non-Af Amer) 65.2 ml/min 08/20/23 20:40 BUN/Creatinine Ratio 15.9 (10-20) 08/20/23 20:40 Glucose 108 mg/dl (70-99(Fasting)) H 08/20/23 20:40 Lactate 1.7 mmol/L (0.4-2.0) 08/20/23 20:40 Calcium 8.5 mg/dl (8.6-10.3) L 08/20/23 20:40 Total Bilirubin 1.5 mg/dl (0.2-1.0) H 08/20/23 20:40 AST 45 U/L (13-39) H 08/20/23 20:40 ALT 46 U/L (7-52) 08/20/23 20:40 Alkaline Phosphatase 83 U/L (34-104) 08/20/23 20:40 Troponin I High Sens 60.8 pg/ml (0-20) H* 08/20/23 20:40 Total Protein 6.2 gm/dl (6.0-8.3) 08/20/23 20:40 Albumin 3.6 gm/dl (3.4-5.0) 08/20/23 20:40 Globulin 2.6 gm/dl (2.5-4.0) 08/20/23 20:40 Albumin/Globulin Ratio 1.4 (0.9-2) 08/20/23 20:40 Procalcitonin 0.16 ng/ml (0-0.5) 08/20/23 20:40 Urine Color [place] 08/20/23 21:55 Urine Appearance Clear (Clear) 08/20/23 21:55 Urine pH 6.0 (4.5-7.5) 08/20/23 21:55 Ur Specific [place] > 1.045 (1.000-1.030) H 08/20/23 21:55 Urine Protein 1+ (Negative) H 08/20/23 21:55 Urine Glucose (UA) Negative (Negative) 08/20/23 21:55 Urine Ketones 2+ (Negative) H 08/20/23 21:55 Urine Blood 2+ (Negative) H 08/20/23 21:55 Urine Nitrite Negative (Negative) 08/20/23 21:55 Urine Bilirubin Negative (Negative) 08/20/23 21:55 Urine Urobilinogen Negative (Negative) 08/20/23 21:55 Ur Leukocyte Esterase 1+ (Negative) H 08/20/23 21:55 Urine WBC (Auto) 21-50 /hpf (0-5) H 08/20/23 21:55 Urine RBC (Auto) >20 /hpf (0-2) H 08/20/23 21:55 U Hyaline Cast (Auto) 3-5 /lpf (0-2) H 08/20/23 21:55 U Epithel Cells (Auto) 0-2 /hpf (0-2) 08/20/23 21:55 Urine Bacteria (Auto) None Seen (None Seen) 08/20/23 21:55 SARS-CoV-2 (PCR) NEGATIVE (Negative) 08/20/23 21:00 Influenza Type A (PCR) Negative (Neg) 08/20/23 21:00 Influenza Type B (PCR) Negative (Neg) 08/20/23 21:00 RSV (RT-PCR) Negative (Neg) 08/20/23 21:00 ECG Additional Comments: EKG with AF at 74bpm, no acute ischemic changes Code Status & VTE Plan VTE Prophylaxis Plan VTE Prophylaxis will be ordered: Yes PG Care Time/CCT Total # of Minutes Spent Total Time Spent with Patient: Total time spent is greater than 50% in coordination of care (as documented) at patient's floor/unit and/or counseling patient: Coding Level of Care Code 86300 INT INP/OBS CARE 3/75MIN Diagnoses Sepsis A41.9 Atrial fibrillation I48.91 Elevated troponin R79.89
[2023-08-20] MEDS: CEFEPIME 2,000 MG/20 ML VIAL IV STA (22:47)
[2023-08-20] MEDS ORDERED: ACETAMINOPHEN 500 MG TAB PO PRN (23:48)
[2023-08-21] MEDS: LACTATED RINGER'S 1,000 ML IV SCH (00:17)
[2023-08-21] MEDS: ENOXAPARIN INJ 40 MG/0.4 ML SYR SQ SCH (05:52)
[2023-08-21 06:13] LABS: Hematocrit (blood only) 33.1 % (42.0-52.0); Hemoglobin 10.9 g/dl (14.0-18.0); Mean Corpuscular Hemoglobin 30.8 pg (25.0-34.0); Mean Corpuscular Hgb Conc 32.9 g/dL (32.0-36.0); Mean Corpuscular Volume 93.5 fL (80.0-100.0); Mean Platelet Volume 10.1 fL (9.4-12.4); Platelet Count 143 K/uL (130-400); RDW Coefficient of Variation 13.2 % (11.5-14.5); RDW Standard Deviation 45.2 fL (36.4-46.3); Red Blood Count 3.54 M/uL (4.70-6.10); White Blood Count 9.55 K/ul (4.8-10.8)
[2023-08-21 06:27] LABS: Albumin Level 2.8 gm/dl (3.4-5.0); BUN Creatinine Ratio 17.2 (10-20); Bilirubin Direct 0.2 mg/dl (0-0.2); Bilirubin,Total 0.9 mg/dl (0.2-1.0); Calcium 7.7 mg/dl (8.6-10.3); Creatinine Clr Calc Pharmacy 59.5 ml/min; Est GFR (Non-African American) 71.6 ml/min; Potassium 4.4 mmol/L (3.5-5.1); Total Protein 4.9 gm/dl (6.0-8.3)
[2023-08-21 06:42] LABS: Thyroid Stimulating Hormone 0.647 uIu/ml (0.300-4.500)
[2023-08-21] MEDS: ASPIRIN 81 MG ECTAB PO SCH (08:46)
[2023-08-21] MEDS: TAMSULOSIN HCL 0.4 MG CAP PO SCH (08:46)
[2023-08-21] MEDS: CEFEPIME 2,000 MG in SYRINGE 0 ML IV SCH (08:49)
--- NOTE | 2023-08-21 08:52 | Urology Consultation ---
Date of Consultation August 21, 2023 Assessment & Plan (1) BPH w urinary obs/LUTS: (2) H/O transurethral resection of prostate: (3) Acute UTI: 78 yo/M recently status post TURP on 08/17/[address] Shin admitted for sepsis, suspected UTI and elevated troponin Patient afebrile, SBPs 90-100s Labs reviewedcreatinine 0.99, WBC 9.55 Urine and blood cultures are pending Recommend continue broad-spectrum antibiotics and narrow per sensitivity data when available Recommend obtain cultures from outside facility for review Waldron patent and draining yellow urine Maintain Waldron catheter No acute intervention at this time Continue supportive care, antibiotics and medical management per hospital medi cine Plan to keep outpatient urology follow-up as scheduled for catheter removal and post operative management will follow peripherally, please contact our service with any additional questions or concerns History of Present Illness Attending Physician: Rosie Spring MD History of Present Illness This is an 78-year-old with history of CAD status post CABG, prostate cancer, and BPH who is recently status post TURP with Dr. Shin on 08/17/2023. He was discharged on POD#1 with Bactrim. He presented to [facility] in [place] on 08/19 for evaluation of fever. At outside facility, patient was febrile with low blood pressures. He had cultures collected and tick lab panel sent. He received IV fluids, Tylenol and cefepime at outside facility. Per admitting notes, labs at outside facility showed WBC of 13.2, normal renal function. CT scan without significant acute findings. He left [facility] ED and subsequently presented to [facility] for further evaluation/concern for urosepsis. On arrival to ED, he was afebrile, BP 97/55. Lab work showed WBC 13.69, hemoglobin 13.3, creatinine 1.07, lactate 1.7, troponin 60.8. EKG showed atrial fibrillation, rate controlled. Urinalysis showed 2+ blood, 1+ LE, 21-50 WBC, >20 RBC, negative for bacteria. Urine and blood cultures collected. He was treated with IV fluids, cefepime, ondansetron. He was admitted for acute UTI, sepsis and elevated troponin. Patient seen and examined at bedside. He is awake and resting in bed. Denies dysuria or hematuria. He reports low back pain, no flank pain. Denies nausea, vomiting, fever or chills. Waldron catheter intact. Allergies Allergy/AdvReac Type Severity Reaction Status Date / Time ciprofloxacin [From Cipro] AdvReac Intermediate Verified 08/17/23 10:12 Home Medications Medication Instructions Recorded Confirmed Type aspirin 81 mg tablet,delayed 81 mg PO QAM 08/04/23 08/20/23 History release atorvastatin 80 mg tablet 80 mg PO PM 08/04/23 08/20/23 History cholecalciferol (vitamin D3) 50 50 mcg PO DAILY 08/04/23 08/20/23 History mcg (2,000 unit) tablet (Vitamin D3) tamsulosin 0.4 mg capsule 0.4 mg PO BID 08/04/23 08/20/23 History lidocaine HCl 2 % mucosal jelly in 1 applic topical BID PRN pain #5 mL 08/18/23 08/20/23 Rx applicator sulfamethoxazole 800 1 tab PO Q12H 5 days #10 tabs 08/18/23 08/20/23 Rx mg-trimethoprim 160 mg tablet (Bactrim DS) acetaminophen 500 mg tablet 1,000 mg PO Q6H PRN Pain 08/20/23 08/20/23 History (Tylenol Extra Strength) Patient History Medical History History of COVID-19 2021 History of postoperative nausea and vomiting Hx of Lyme disease resolved Hx pulmonary embolism very remote hx per pt > unknown cause > thinner DC'ed History of myocardial infarction 2016 > stent then CABG Hyperlipidemia Prostate cancer just monitoring for now BPH (benign prostatic hyperplasia) Surgical History Hx of vasectomy History of colonoscopy History of cholecystectomy History of cataract surgery bilat History of heart artery stent 2016 > 1 stent Hx of CABG x3 vessels in 2016 Hx of prostate biopsy Social History Smoking Status: Never smoker Second Hand Exposure: No; Do You Dip or Chew Tobacco: No; Hx Alcohol Use: Yes Alcohol type: beer Hx Substance Use: No Preferred Language: Dutch Communication Ability: Effective Visual Impairment: No Limitations Sanitizer Required: No Beliefs That Will Affect Care: None Current Living Situation: Alone Other Information That Helps Us Care for You: No Feels Safe at Home: Yes Safety Concerns: Feels Safe At This Time Assistive Devices: Glasses Review of Systems Review of Systems: All systems reviewed & are unremarkable except as noted in HPI & below Physical Exam Constitutional: well developed and well nourished; no acute distress Respiratory: normal respiratory effort; no respiratory distress and no labored breathing Gastrointestinal (Abdomen): Inspection/Auscultation: abdomen normal to inspection Musculoskeletal: Head/Neck/Chest: normocephalic Neurologic: moves all extremities and awake Psychiatric: Orientation: alert and oriented x 3 Genitourinary: Waldron patent and draining yellow urine Results & Data Vital Signs (Past 12 Hours) Vital Signs Temp Pulse Pulse Resp BP BP Pulse Ox 08/21/23 07:41 85 08/21/23 07:38 37.2 C 87 19 91/51 L 95 08/21/23 03:05 37.4 C 83 18 98/52 L 92 08/21/23 00:18 90 08/20/23 23:40 37.2 C 92 H 18 103/64 97 08/20/23 23:29 90 18 92/58 L 97 08/20/23 22:33 92 H 18 97 08/20/23 22:30 104/59 L 08/20/23 22:00 95 H 20 101/57 L 96 08/20/23 21:45 77 15 93/57 L 97 08/20/23 21:30 92 H 18 98/55 L 08/20/23 21:21 69 17 97 08/20/23 21:15 98/64 L O2 Del Method 08/21/23 07:41 08/21/23 07:38 Room Air 08/21/23 03:05 Room Air 08/21/23 00:18 08/20/23 23:40 Room Air 08/20/23 23:29 Room Air 08/20/23 22:33 Room Air 08/20/23 22:30 08/20/23 22:00 Room Air 08/20/23 21:45 Room Air 08/20/23 21:30 08/20/23 21:21 Room Air 08/20/23 21:15 PG Care Time/CCT Total # of Minutes Spent Total Time Spent with Patient: Total time spent is greater than 50% in coordination of care (as documented) at patient's floor/unit and/or counseling patient: Coding Level of Care Code 52391 INT INP/OBS CARE MIN Diagnoses BPH w urinary obs/LUTS N40.1; N13.8 H/O transurethral resection of prostate Z98.890; Z90.79 Acute UTI N39.0
[2023-08-21] MEDS: POLYETHYLENE (MIRALAX) 17 GM PACK PO PRN (08:53)
--- NOTE | 2023-08-21 10:56 | Hospitalist Progress Note ---
Date of Service August 21, 2023 Assessment & Plan (1) Sepsis: Plan: Now resolving, was Likely urinary source given recent urological procedure. Patient was seen at an outside facility prior to arrival and was administered IVF x 3L and Cefepime Cultures and tick panel sent ([facility] in [place]) Presently afebrile, BP has remained stable. Lactate WNL Feels overall better, denies chills overnight. Urine culture still pending Continue empiric IV antibiotics, IV cefepime 2 g every 8 hours. (2) H/O transurethral resection of prostate: Plan: Patient recently had TURP Will maintain Waldron catheter per urology Outpatient follow-up with urology for Waldron management. (3) Atrial fibrillation: Plan: EKG with atrial fibrillation. No prior mention of this. Rate controlled -Check electrolytes, TSH -Check 2D echo -Will hold off on anticoagulation at this time given recent Urological procedure, UA with blood/RBCs (4) Elevated troponin: Plan: Patient with history of CAD s/p CABG x 3V in 2016. He denies chest pain. EKG with no ischemic changes. He does have mild elevation in troponin - presently 60.8 --> 77. Possibly in setting of acute infection, sepsis. -Telemetry monitoring -Trend troponin -2D echo as above -Continue ASA 81mg po qAM -Continue Atorvastatin 80mg po qPM Plan F/E/N - LR at 100mL/hr x 2L, monitor electrolytes and replete as needed, AHA diet as tolerated Ppx - Lovenox Code - Full Dispo - Observation to PCU Admission and Anticipated Discharge Date Admission Date: August 20, 2023 Subjective Patient seen and examined this morning, says he feels overall better, denies fevers or chills. Review of Systems Review of Systems: All systems reviewed are negative, apart from the ones contained in the history. Physical Exam Physical Exam: The patient is awake, alert and oriented 3, well developed and well nourished, normocephalic and atraumatic, lying in bed and in no acute distress. HEENT--PERRL, EOMI, mucous membranes and oropharynx mildly dry Neck--supple. No JVD. No bruits. Thyroid normal, trachea midline, no adenopathy. Heart--normal S1 and S2. No murmurs, rubs or gallops. Lungs--clear bilaterally, no respiratory distress, no accessory muscle use. Abdomen--normal bowel sounds and soft. Extremities--no cyanosis or clubbing. No edema. Dermatologic--normal skin turgor, normal color, no abnormal lymph nodes, no rash. Neurologic--cranial nerves II through XII grossly intact. Rheumatologic--normal range of motion. Psychiatric--normal affect. Results & Data Results & Data Vital Signs (Past 12 Hours) Vital Signs Temp Pulse Pulse Resp BP BP Pulse Ox 08/21/23 07:41 85 08/21/23 07:38 99.0 F 87 19 91/51 L 95 08/21/23 03:05 99.3 F 83 18 98/52 L 92 08/21/23 00:18 90 08/20/23 23:40 99.0 F 92 H 18 103/64 97 08/20/23 23:29 90 18 92/58 L 97 O2 Del Method 08/21/23 07:41 08/21/23 07:38 Room Air 08/21/23 03:05 Room Air 08/21/23 00:18 08/20/23 23:40 Room Air 08/20/23 23:29 Room Air PG Care Time/CCT Total # of Minutes Spent Total Time Spent with Patient: Total time spent is greater than 50% in coordination of care (as documented) at patient's floor/unit and/or counseling patient: Coding Level of Care Code 56678 SUB INP/OBS CARE 2/35MIN Diagnoses Sepsis A41.9 H/O transurethral resection of prostate Z98.890; Z90.79 Atrial fibrillation I48.91 Elevated troponin R79.89 Time Spent (min) 35
--- NOTE | 2023-08-21 12:11 | XCELERA ---
[id number]
--- NOTE | 2023-08-21 12:45 | Electrocardiogram Report ---
Test Reason : Blood Pressure : / mmHG Vent. Rate : 074 BPM Atrial Rate : 000 BPM P-R Int : 000 ms QRS Dur : 088 ms QT Int : 372 ms P-R-T Axes : 000 081 099 degrees QTc Int : 412 ms Atrial fibrillation Nonspecific ST and T wave abnormality Abnormal ECG No previous ECGs available Confirmed by Matthew Boyer ([id number]) on 08/21/2023 12:45:23 PM Referred By: Confirmed By:Matthew Boyer
--- NOTE | 2023-08-21 13:00 | Electrocardiogram Report ---
Test Reason : Blood Pressure : / mmHG Vent. Rate : 090 BPM Atrial Rate : 090 BPM P-R Int : 248 ms QRS Dur : 090 ms QT Int : 362 ms P-R-T Axes : 062 088 078 degrees QTc Int : 442 ms Sinus rhythm with 1st degree A-V block Nonspecific T wave abnormality Abnormal ECG When compared with ECG of 20-AUG-2023 20:57, (unconfirmed) Sinus rhythm has replaced Atrial fibrillation Nonspecific T wave abnormality no longer evident in Anterior leads Confirmed by Matthew Boyer ([id number]) on 08/21/2023 1:00:37 PM Referred By: Referral [facility] Confirmed By:Matthew Boyer
[2023-08-21] MEDS: ATORVASTATIN 40 MG TAB PO SCH (20:06)
[2023-08-22 08:29] LABS: Hematocrit (blood only) 33.8 % (42.0-52.0); Hemoglobin 11.1 g/dl (14.0-18.0); Mean Corpuscular Hemoglobin 30.7 pg (25.0-34.0); Mean Corpuscular Hgb Conc 32.8 g/dL (32.0-36.0); Mean Corpuscular Volume 93.6 fL (80.0-100.0); Mean Platelet Volume 10.1 fL (9.4-12.4); Platelet Count 157 K/uL (130-400); RDW Coefficient of Variation 13.1 % (11.5-14.5); RDW Standard Deviation 45.1 fL (36.4-46.3); Red Blood Count 3.61 M/uL (4.70-6.10)
[2023-08-22 08:41] LABS: Calcium 7.8 mg/dl (8.6-10.3); Creatinine Clr Calc Pharmacy 65.5 ml/min; Est GFR (African American) 93.2 ml/min; Est GFR (Non-African American) 80.4 ml/min; Potassium 4.1 mmol/L (3.5-5.1)
--- NOTE | 2023-08-22 11:03 | Electrocardiogram Report ---
Test Reason : Blood Pressure : / mmHG Vent. Rate : 090 BPM Atrial Rate : 090 BPM P-R Int : 248 ms QRS Dur : 092 ms QT Int : 368 ms P-R-T Axes : 061 086 079 degrees QTc Int : 450 ms Sinus rhythm with 1st degree A-V block Otherwise normal ECG When compared with ECG of 21-AUG-2023 08:54, No significant change was found Confirmed by Matthew Boyer ([id number]) on 08/22/2023 11:03:23 AM Referred By: Referral [facility] Confirmed By:Matthew Boyer
--- NOTE | 2023-08-22 11:11 | Discharge Summary ---
Date of Service August 22, 2023 Admission HPI Per Admitting Provider Dmitriy Coronel is a pleasant 78yo male with history of CAD s/p CABG x 3V in 2016 s/p TURP performed by Dr. Shin on 08/17/23. Patient reports the procedure went well with no complications. He stayed overnight in the hospital and was discharged home on 08/18/[address] in [address] and Bactrim. When patient returned home he developed a fever as well as chills and fatigue. He has been taking Tylenol with some improvement. This AM he woke with a fever to 101.4 so he went to the ER at [facility] in [place]. At the outside facility patient was febrile at 100.2, borderline BP at 94/62. He had cultures taken as well as Tick labs sent. He was given LR x 2L then LR at 200mL/hr x 1 additional liter. He was given Tylenol and Cefepime. Patient was subsequently transferred to [facility] for Urology evaluation. In the ER he is afebrile, borderline BP at 98/64 ER Course: Cefepime 2gm Gatito 4mg IV NSS x 500mL Principal Diagnosis UTI, new onset atrial fibrillation Discharge Exam The patient is awake, alert and oriented 3, well developed and well nourished, normocephalic and atraumatic, lying in bed and in no acute distress. HEENT--PERRL, EOMI, mucous membranes and oropharynx mildly dry Neck--supple. No JVD. No bruits. Thyroid normal, trachea midline, no adenopathy. Heart--normal S1 and S2. No murmurs, rubs or gallops. Lungs--clear bilaterally, no respiratory distress, no accessory muscle use. Abdomen--normal bowel sounds and soft. Extremities--no cyanosis or clubbing. No edema. Dermatologic--normal skin turgor, normal color, no abnormal lymph nodes, no rash. Neurologic--cranial nerves II through XII grossly intact. Rheumatologic--normal range of motion. Psychiatric--normal affect. Discharge Data Allergies Allergy/AdvReac Type Severity Reaction Status Date / Time ciprofloxacin [From Cipro] AdvReac Intermediate Verified 08/17/23 10:12 Consultations 08/20/23 21:55 ED Decision to Admit Stat 08/21/23 00:23 Consult Urology Routine Hospital Course (1) Sepsis: Secondary to UTI on a background of recent urological procedure Now resolved was on empiric IV cefepime for a few days Discharged on p.o. cephalexin 500 mg twice daily for 5 days (2) H/O transurethral resection of prostate: Patient recently had TURP Will maintain Waldron catheter per urology Outpatient follow-up with urology for Waldron management. (3) Atrial fibrillation: EKG with atrial fibrillation. No prior mention of this. Rate controlled -Check electrolytes, TSH -Given elevated [id number] score, will start on Eliquis 5 mg twice daily Asked patient to follow-up with cardiology outpatient. (4) Elevated troponin: Patient with history of CAD s/p CABG x 3V in 2016. He denies chest pain. EKG with no ischemic changes. He does have mild elevation in troponin - presently 60.8 --> 77. Possibly in setting of acute infection, sepsis. -Telemetry monitoring -Trend troponin -2D echo as above -Continue ASA 81mg po qAM -Continue Atorvastatin 80mg po qPM Plan F/E/N - LR at 100mL/hr x 2L, monitor electrolytes and replete as needed, AHA diet as tolerated Ppx - Lovenox Code - Full Dispo - Discharge home Total Time Total Time Spent Total Time Spent (In Minutes): 35 Discharge Plan Discharge Items Patient Disposition: Home - Self-Care Reason For Visit: SEPSIS, SUSPECTED URINARY SOURCE Discharge Diagnosis: UTI, paroxysmal afib Activity: Resume your previous activity Non-emergency contact: Primary Care Provider and Road Tester Call non-emergency contact if: you have any medication questions Follow-up/Referrals: Miguel A Zavala M.D. [Primary Care Provider] - Diet: Regular Addtl Attending Provider Instructions: Please make appointment to follow-up with your instantizer operator regarding your new onset atrial fibrillation. Pending Studies at Discharge: No Stand-Alone Forms: My [employer], Smoking Cessation Medications and DC Order Prescriptions: New Eliquis 5 mg tablet 5 mg PO BID Qty: 60 0RF cephalexin 500 mg capsule 500 mg PO BID 5 Days Qty: 10 0RF Continued atorvastatin 80 mg Tablet 80 mg PO PM aspirin 81 mg Tablet,Delayed Release (Dr/Ec) 81 mg PO QAM tamsulosin 0.4 mg Capsule 0.4 mg PO BID cholecalciferol (vitamin D3) [Vitamin D3] 50 mcg (2,000 unit) Tablet 50 mcg PO DAILY lidocaine HCl 2 % jelly in applicator 1 applic topical BID PRN (Reason: pain) Qty: 5 0RF Rx Instructions: Apply topically to catheter insertion site as needed for pain acetaminophen [Tylenol Extra Strength] 500 mg Tablet 1,000 mg PO Q6H PRN (Reason: Pain) Discontinued sulfamethoxazole-trimethoprim [Bactrim DS] 800-160 mg tablet 1 tab PO Q12H 5 Days Qty: 10 0RF Discharge Orders: Discharge Order (Routine); Ordered 08/22/23 Ordered By: Rosie Spring Admission Data Admit Date/Time: 08/20/23 22:32 Attending Provider: Rosie Spring Admit Provider: Nilda Coe Primary Care Provider: Miguel A Zavala Other Providers: Nilda Coe; Kentrell Zhang Coding Level of Care Code 23998 INP/OBS DISCH >30 MIN Diagnoses Sepsis A41.9 H/O transurethral resection of prostate Z98.890; Z90.79 Atrial fibrillation I48.91 Elevated troponin R79.89 Time Spent (min) 35
--- NOTE | 2023-08-22 11:15 | Electrocardiogram Report ---
Test Reason : Blood Pressure : / mmHG Vent. Rate : 083 BPM Atrial Rate : 136 BPM P-R Int : 000 ms QRS Dur : 094 ms QT Int : 392 ms P-R-T Axes : 000 090 055 degrees QTc Int : 460 ms Atrial fibrillation Rightward axis Abnormal ECG When compared with ECG of 21-AUG-2023 18:24, (unconfirmed) Atrial fibrillation has replaced Sinus rhythm Nonspecific T wave abnormality now evident in Inferior leads Confirmed by Matthew Boyer ([id number]) on 08/22/2023 11:15:37 AM Referred By: Referral [facility] Confirmed By:Matthew Boyer
[2023-08-22] MEDS: ONDANSETRON INJ 2 MG/ML 2 ML VIAL IV PRN (11:27)
== END 2023-08-22 13:14 | disposition home or self-care (01) ==
LOC: 4W 20:17 → ED 20:17 → SUATTDRO 22:32 → 4W 23:29